=== PATIENT | female | born 1985 | race Caucasian/White ===

== ENCOUNTER 2016-04-10 10:06 | Emergency (ER) | payer OTHER ==
[~2016-04-10] VITALS: Ht 154.9 cm; Wt 54.5 kg
[~2016-04-10 10:06] MED LIST: ADVAIR IH; AMBIEN 10MG10 MG PO; AMERGE 2.5MG T2.5 MG PO; AMITRIPTYLINE H25 M1 PO; AMOXICILLIN 50500 MG PO; BACTRIM DS 8001 TAB PO; CELEXA; CELEXA40 MG PO; CEPHALEXIN250 M1 PO; CEPHALEXIN500 M1 PO; CLONAZEPAM PO; CYMBALTA 60MG60 MG PO; DEPAKOTE ER 25250 MG; DEPAKOTE ER 50500 MG PO; ELAVIL50 MG PO; ESTRACE 1MG1 MG/TAB PO; ESTRACE2 MG PO; ESTRADIOL TD; FELDENE10 MG; FLEXERIL 1010 MG/TAB PO; HYDROCODONE/APAP; IBUPROFEN600 MG PO; IBUPROFEN800 M1 PO; IMITREX 6M6 MG/0.5 M SQ; LORTAB 5/500 501 TAB PO; MACRODANTIN25 MG PO; MACRODANTIN50 MG PO; MAG-OX 400400 MG/TAB PO; MECLIZINE12.5 MG PO; MIDRIN; MULTIVITAMIN FO1 CAP PO; MUSCLE RELAXANT; NAPROSYN500 MG PO; NEURONTIN300 MG/CAP PO; NO HOME MEDICATIONS; NORCO 325 MG-51 TAB PO; NORCO 325 MG-7.1 TAB; OXYCONTIN15 MG PO; PEN-VEE K500 MG PO; PERCOCET 325 MG1 TA2 PO; PERCOCET 5/321 UDTAB PO; PHENERGAN 25 TA25 MG PO; PREDNISONE20 MG PO; PRINIVIL2.5 MG PO; PROVENTIL0.09 MG/A1 IH; TAMIFLU 75MG75 MG PO; TESSALON PERLE200 MG PO; TOPAMAX 100MG100 M1 PO; TRAZODONE150 MG PO; TREXIMET 500 MG1 TAB PO; TRIAMCINOLONE A15 GM TP; TYLENOL #3 301 UDTAB PO; ULTRAM 50MG TAB50 MG PO; VENTOLIN0.09 MG IH; VESICARE PO; VITAMIN B12100 MCG PO; ZIPSOR25 MG PO; ZITHROMAX 250M250 MG PO; ZOFRAN 4MG T4 MG/TAB PO; ZOFRAN ODT4 MG PO; ZOFRAN4 MG PO; tylenol pm
[2016-04-10 10:08] VITALS: BP 113/66; PULSE 79
[2016-04-10] MEDS ORDERED: NORCO 325 MG-51 TAB PO (10:51)
[2016-04-10 11:08] VITALS: TEMP 99
== END 2016-04-10 11:02 | disposition home or self-care (01) ==
LOC: COL.ER 10:06
DX: K08.89 Other specified disorders of teeth and supporting structures (principal); F17.210 Nicotine dependence, cigarettes, uncomplicated

== ENCOUNTER 2016-05-12 19:07 | Emergency (ER) | payer OTHER ==
[~2016-05-12] VITALS: Ht 154.9 cm; Wt 54.5 kg
[2016-05-12 19:10] VITALS: BP 129/75; TEMP 98.2
[2016-05-12 20:28] VITALS: PULSE 66
== END 2016-05-12 20:28 | disposition home or self-care (01) ==
LOC: COL.ER 19:07
DX: S60.211A Contusion of right wrist, initial encounter (principal); W23.0XXA Caught, crushed, jammed, or pinched between moving objects, initial encounter

== ENCOUNTER 2016-05-27 16:05 | Emergency (ER) | payer OTHER ==
[~2016-05-27] VITALS: Ht 162.6 cm; Wt 54.5 kg
[2016-05-27 16:08] VITALS: BP 113/74; TEMP 97.9
[2016-05-27] MEDS ORDERED: CEPHALEXIN250 M1 PO (16:31)
[2016-05-27 17:35] VITALS: PULSE 78
== END 2016-05-27 17:35 | disposition home or self-care (01) ==
LOC: COL.ER 16:05
DX: S60.221A Contusion of right hand, initial encounter (principal); S60.511A Abrasion of right hand, initial encounter; W22.01XA Walked into wall, initial encounter; Y93.83 Activity, rough housing and horseplay; Y92.009 Unspecified place in unspecified non-institutional (private) residence as the place of occurrence of the external cause

== ENCOUNTER 2016-05-29 11:53 | Emergency (ER) | payer OTHER ==
[~2016-05-29] VITALS: Ht 154.9 cm; Wt 54.5 kg
[2016-05-29 12:03] VITALS: BP 109/68; TEMP 98.4
[2016-05-29 13:57] VITALS: PULSE 67
== END 2016-05-29 13:57 | disposition home or self-care (01) ==
LOC: COL.ER 11:53
DX: S63.8X1D Sprain of other part of right wrist and hand, subsequent encounter (principal); X58.XXXD Exposure to other specified factors, subsequent encounter

== ENCOUNTER 2016-06-09 13:12 | Emergency (ER) | payer OTHER ==
[~2016-06-09] VITALS: Ht 154.9 cm; Wt 50.0 kg
[2016-06-09 13:19] VITALS: BP 109/63; PULSE 81; TEMP 98.2
[2016-06-09] MEDS ORDERED: FLEXERIL 1010 MG/TAB PO (14:26)
== END 2016-06-09 14:46 | disposition home or self-care (01) ==
LOC: COL.ER 13:12
DX: S46.911A Strain of unspecified muscle, fascia and tendon at shoulder and upper arm level, right arm, initial encounter (principal); X58.XXXA Exposure to other specified factors, initial encounter
CPT/HCPCS: J1885; J2360

== ENCOUNTER 2016-06-17 08:18 | Emergency (ER) | payer OTHER ==
[~2016-06-17] VITALS: Ht 162.6 cm; Wt 50.0 kg
[2016-06-17 08:24] VITALS: TEMP 98
[2016-06-17 09:12] LABS: HEMATOCRIT 41.1 % (37.0-47.0); HEMOGLOBIN 14.5 g/dl (12.5-16.0); MEAN CELL VOLUME 92 fl (80.0-100.0); MEAN CORPUSCULAR HEMOGLOBIN 32 pg (27.0-31.0); MEAN CORPUSCULAR HGB CONC 35 g/dl (33.0-37.0); MEAN PLATELET VOLUME 9.7 fl (7.4-10.4); PLATELET COUNT 219 K/mm3 (130-400); RED BLOOD COUNT 4.47 M/mm3 (4.10-5.30); REDCELL DISTRIBUTION WIDTH-CV 12.5 % (11.5-14.5)
[2016-06-17 09:16] LABS: PH 5 (5-8); SQUAMOUS EPITHELIAL 0-2 /hpf; URINE APPEARANCE Clear; URINE BACTERIA None Seen /hpf; URINE BILIRUBIN Negative (NEGATIVE); URINE BLOOD 1+ (NEGATIVE); URINE COLOR Yellow; URINE GLUCOSE Negative (NEGATIVE); URINE KETONE Negative (NEGATIVE); URINE UROBILINOGEN Negative (NEGATIVE); URINE WBC 0-2 /hpf
[2016-06-17 09:20] LABS: ADD PATHOLOGY DIFF REVIEW NO
[2016-06-17 09:30] LABS: ADJUSTED CALCIUM 9.1 mg/dL (8.4-10.2); ALBUMIN 4.6 gm/dL (3.5-5.0); BILIRUBIN,TOTAL 0.7 mg/dL (0.0-1.0); C-REACTIVE PROTEIN 0.7 mg/dL (0.0-0.9); CALCIUM 9.6 mg/dL (8.4-10.2); CREATININE, serum 0.69 mg/dL (0.52-1.25); TOTAL PROTEIN 7.5 gm/dL (6.4-8.2)
[2016-06-17 09:32] LABS: BAND 3 % (0-10); EOSINOPHIL 2 % (0-4); NEUTROPHILS 90 % (42.0-75.2); TOTAL CELLS COUNTED 100
[2016-06-17] MEDS ORDERED: ZOFRAN ODT4 MG PO (10:58)
[2016-06-17 11:16] VITALS: BP 104/69; PULSE 96
== END 2016-06-17 11:16 | disposition home or self-care (01) ==
LOC: COL.ER 08:18
PROVIDERS: Physician Assistant
DX: K52.9 Noninfective gastroenteritis and colitis, unspecified (principal); F17.210 Nicotine dependence, cigarettes, uncomplicated
CPT/HCPCS: J1170; J1885; J2405; J2550; J7030

== ENCOUNTER 2016-06-25 12:42 | Emergency (ER) | payer OTHER ==
[~2016-06-25] VITALS: Ht 154.9 cm; Wt 50.5 kg
[2016-06-25 12:55] VITALS: BP 117/71; TEMP 98.1
[2016-06-25 14:20] VITALS: PULSE 90
== END 2016-06-25 14:24 | disposition home or self-care (01) ==
LOC: COL.ER 12:42
DX: S93.402A Sprain of unspecified ligament of left ankle, initial encounter (principal); W17.89XA Other fall from one level to another, initial encounter; Y92.414 Local residential or business street as the place of occurrence of the external cause

== ENCOUNTER 2016-07-05 12:10 | Emergency (ER) | payer OTHER ==
[~2016-07-05] VITALS: Ht 154.9 cm; Wt 49.5 kg
[2016-07-05 12:16] VITALS: BP 103/67; TEMP 98.4
[2016-07-05] MEDS ORDERED: PERCOCET 325 MG1 TA2 PO (14:04)
[2016-07-05] MEDS ORDERED: ULTRAM 50MG TAB50 MG PO (14:04)
[2016-07-05 14:21] VITALS: PULSE 88
== END 2016-07-05 14:22 | disposition home or self-care (01) ==
LOC: COL.ER 12:10
DX: S46.912A Strain of unspecified muscle, fascia and tendon at shoulder and upper arm level, left arm, initial encounter (principal); X50.0XXA Overexertion from strenuous movement or load, initial encounter; Y92.89 Other specified places as the place of occurrence of the external cause
CPT/HCPCS: J1885

== ENCOUNTER 2016-08-15 15:49 | Emergency (ER) | payer OTHER ==
[~2016-08-15] VITALS: Ht 154.9 cm; Wt 50.0 kg
[2016-08-15 15:52] VITALS: BP 115/60; PULSE 75; TEMP 98.9
[2016-08-15] MEDS ORDERED: PEN-VEE K500 MG PO (16:15)
== END 2016-08-15 16:30 | disposition home or self-care (01) ==
LOC: COL.ER 15:49
DX: K08.89 Other specified disorders of teeth and supporting structures (principal); Z98.890 Other specified postprocedural states; F17.210 Nicotine dependence, cigarettes, uncomplicated; K08.409 Partial loss of teeth, unspecified cause, unspecified class

== ENCOUNTER 2016-09-01 17:16 | Emergency (ER) | payer OTHER ==
[~2016-09-01] VITALS: Ht 162.6 cm; Wt 50.0 kg
[2016-09-01 17:20] VITALS: BP 126/57; TEMP 98.2
[2016-09-01 19:13] VITALS: PULSE 74
== END 2016-09-01 19:14 | disposition home or self-care (01) ==
LOC: COL.ER 17:16
DX: S43.402A Unspecified sprain of left shoulder joint, initial encounter (principal); S63.502A Unspecified sprain of left wrist, initial encounter; W11.XXXA Fall on and from ladder, initial encounter; Y92.009 Unspecified place in unspecified non-institutional (private) residence as the place of occurrence of the external cause; J45.909 Unspecified asthma, uncomplicated; F32.9 Major depressive disorder, single episode, unspecified; F17.210 Nicotine dependence, cigarettes, uncomplicated

== ENCOUNTER 2016-10-06 18:04 | Emergency (ER) | payer OTHER ==
[~2016-10-06] VITALS: Ht 154.9 cm; Wt 51.8 kg
[2016-10-06 18:05] VITALS: BP 117/57; TEMP 98.6
[2016-10-06 20:16] VITALS: PULSE 79
== END 2016-10-06 20:16 | disposition home or self-care (01) ==
LOC: COL.ER 18:04
DX: M67.471 Ganglion, right ankle and foot (principal); F32.9 Major depressive disorder, single episode, unspecified; J45.909 Unspecified asthma, uncomplicated; F17.210 Nicotine dependence, cigarettes, uncomplicated; Z98.51 Tubal ligation status; Z87.59 Personal history of other complications of pregnancy, childbirth and the puerperium; Z90.49 Acquired absence of other specified parts of digestive tract; Z90.710 Acquired absence of both cervix and uterus

== ENCOUNTER 2016-10-14 12:45 | Emergency (ER) | payer OTHER ==
[~2016-10-14] VITALS: Ht 154.9 cm; Wt 52.7 kg
[2016-10-14 12:55] VITALS: BP 120/67; PULSE 76; TEMP 98.7
== END 2016-10-14 14:58 | disposition home or self-care (01) ==
LOC: COL.ER 12:45
DX: S61.412A Laceration without foreign body of left hand, initial encounter (principal); W26.8XXA Contact with other sharp object(s), not elsewhere classified, initial encounter; Y92.009 Unspecified place in unspecified non-institutional (private) residence as the place of occurrence of the external cause

== ENCOUNTER 2016-10-25 21:13 | Emergency (ER) | payer OTHER ==
[~2016-10-25] VITALS: Ht 154.9 cm; Wt 52.3 kg
[2016-10-25 21:14] VITALS: BP 118/59; TEMP 97.7
[2016-10-25 22:50] VITALS: PULSE 74
== END 2016-10-25 22:51 | disposition home or self-care (01) ==
LOC: COL.ER 21:13
DX: S20.211A Contusion of right front wall of thorax, initial encounter (principal); J45.909 Unspecified asthma, uncomplicated; F32.9 Major depressive disorder, single episode, unspecified; F17.210 Nicotine dependence, cigarettes, uncomplicated; W51.XXXA Accidental striking against or bumped into by another person, initial encounter; Y92.831 Amusement park as the place of occurrence of the external cause
CPT/HCPCS: J1885

== ENCOUNTER 2016-10-26 13:26 | Emergency (ER) | payer OTHER ==
[~2016-10-26] VITALS: Ht 154.9 cm; Wt 52.3 kg
[2016-10-26 13:32] VITALS: BP 101/59; PULSE 76; TEMP 98
== END 2016-10-26 15:22 | disposition other institution (70) ==
LOC: COL.ER 13:26
DX: S46.911A Strain of unspecified muscle, fascia and tendon at shoulder and upper arm level, right arm, initial encounter (principal); W22.8XXA Striking against or struck by other objects, initial encounter; Y92.89 Other specified places as the place of occurrence of the external cause
CPT/HCPCS: J1885

== ENCOUNTER 2016-12-22 15:43 | Emergency (ER) | payer SELFPAY ==
[~2016-12-22] VITALS: Ht 154.9 cm; Wt 56.8 kg
[2016-12-22 15:45] VITALS: BP 121/60; TEMP 99.2
[2016-12-22 17:03] VITALS: PULSE 80
== END 2016-12-22 17:04 | disposition home or self-care (01) ==
LOC: COL.ER 15:43
DX: S80.02XA Contusion of left knee, initial encounter (principal); J45.909 Unspecified asthma, uncomplicated; F32.9 Major depressive disorder, single episode, unspecified; F17.210 Nicotine dependence, cigarettes, uncomplicated; V00.132A Skateboarder colliding with stationary object, initial encounter; Y92.331 Roller skating rink as the place of occurrence of the external cause

== ENCOUNTER 2017-01-18 13:25 | Emergency (ER) | payer SELFPAY ==
[~2017-01-18] VITALS: Ht 154.9 cm; Wt 52.7 kg
[2017-01-18 13:28] VITALS: BP 113/63; TEMP 97.8
[2017-01-18] MEDS ORDERED: ROBAXIN 75750 MG/TAB PO (14:52)
[2017-01-18 15:11] VITALS: PULSE 80
== END 2017-01-18 15:15 | disposition home or self-care (01) ==
LOC: COL.ER 13:25
DX: S39.012A Strain of muscle, fascia and tendon of lower back, initial encounter (principal); Z90.710 Acquired absence of both cervix and uterus; X50.0XXA Overexertion from strenuous movement or load, initial encounter
CPT/HCPCS: J1885; J2360

== ENCOUNTER 2017-03-02 14:29 | Emergency (ER) | payer SELFPAY ==
[~2017-03-02] VITALS: Ht 154.9 cm; Wt 54.5 kg
[~2017-03-02 14:29] MED LIST changes: +ROBAXIN 75750 MG/TAB PO
[2017-03-02 14:37] VITALS: TEMP 97.7
[2017-03-02 16:10] VITALS: BP 116/70; PULSE 76
== END 2017-03-02 16:11 | disposition home or self-care (01) ==
LOC: COL.ER 14:29
DX: S80.01XA Contusion of right knee, initial encounter (principal); F32.9 Major depressive disorder, single episode, unspecified; Z90.49 Acquired absence of other specified parts of digestive tract; Z90.710 Acquired absence of both cervix and uterus; W17.89XA Other fall from one level to another, initial encounter; Y93.39 Activity, other involving climbing, rappelling and jumping off
CPT/HCPCS: L1830

== ENCOUNTER 2017-04-17 17:24 | Emergency (ER) | payer SELFPAY ==
[~2017-04-17] VITALS: Ht 154.9 cm; Wt 54.5 kg
[2017-04-17 17:27] VITALS: BP 118/60; TEMP 97.5
[2017-04-17] MEDS ORDERED: FLEXERIL 1010 MG/TAB PO (18:48)
[2017-04-17 18:59] VITALS: PULSE 82
== END 2017-04-17 19:00 | disposition home or self-care (01) ==
LOC: COL.ER 17:24
DX: M62.830 Muscle spasm of back (principal); M54.2 Cervicalgia; J45.909 Unspecified asthma, uncomplicated; F17.210 Nicotine dependence, cigarettes, uncomplicated
CPT/HCPCS: J1885

== ENCOUNTER 2017-04-24 14:53 | Emergency (ER) | payer SELFPAY ==
[~2017-04-24] VITALS: Ht 154.9 cm; Wt 54.5 kg
[2017-04-24 15:24] VITALS: BP 117/71; TEMP 98.4
[2017-04-24] MEDS ORDERED: PEN-VEE K500 MG PO (16:42)
[2017-04-24] MEDS ORDERED: NORCO 325 MG-51 TAB PO (16:42)
[2017-04-24 16:51] VITALS: PULSE 77
== END 2017-04-24 16:51 | disposition home or self-care (01) ==
LOC: COL.ER 14:53
DX: K08.89 Other specified disorders of teeth and supporting structures (principal); F17.210 Nicotine dependence, cigarettes, uncomplicated

== ENCOUNTER 2017-05-11 08:34 | Emergency (ER) | payer SELFPAY ==
[~2017-05-11] VITALS: Ht 154.9 cm; Wt 56.8 kg
[2017-05-11 08:37] VITALS: BP 116/63; TEMP 98.9
[2017-05-11] MEDS ORDERED: ZOFRAN ODT4 MG PO (09:49)
[2017-05-11 10:11] VITALS: PULSE 78
== END 2017-05-11 10:12 | disposition home or self-care (01) ==
LOC: COL.ER 08:34
DX: J10.1 Influenza due to other identified influenza virus with other respiratory manifestations (principal); J45.909 Unspecified asthma, uncomplicated; F17.210 Nicotine dependence, cigarettes, uncomplicated; Z90.49 Acquired absence of other specified parts of digestive tract; Z90.710 Acquired absence of both cervix and uterus; Z98.890 Other specified postprocedural states

== ENCOUNTER 2017-06-05 13:42 | Emergency (ER) | payer SELFPAY ==
[~2017-06-05] VITALS: Ht 154.9 cm; Wt 56.8 kg
[2017-06-05 13:47] VITALS: BP 126/61; PULSE 75; TEMP 99.1
[2017-06-05 14:31] LABS: BASO % 0.4 % (0.0-2.0); EOS # 0.1 (0.0-0.7); EOS % 1.5 % (0-4.0); GRAN % 53.1 % (42.2-75.2); HEMATOCRIT 38.3 % (37.0-47.0); HEMOGLOBIN 13.3 g/dl (12.5-16.0); LYMPH # 3.7 (1.2-3.4); MEAN CELL VOLUME 93 fl (80.0-100.0); MEAN CORPUSCULAR HEMOGLOBIN 32 pg (27.0-31.0); MEAN CORPUSCULAR HGB CONC 35 g/dl (33.0-37.0); MEAN PLATELET VOLUME 9.6 fl (7.4-10.4); MONO # 0.5 (0.1-0.6); MONO % 4.8 % (1.7-9.3); PLATELET COUNT 222 K/mm3 (130-400); RED BLOOD COUNT 4.12 M/mm3 (4.10-5.30); REDCELL DISTRIBUTION WIDTH-CV 12.5 % (11.5-14.5)
[2017-06-05 14:46] LABS: ALBUMIN 4.5 gm/dL (3.5-5.0); BILIRUBIN,TOTAL 0.2 mg/dL (0.0-1.0); CALCIUM 8.9 mg/dL (8.4-10.2); CREATININE, serum 0.82 mg/dL (0.52-1.25); POTASSIUM 3.6 mmol/L (3.4-5.0)
[2017-06-05 14:52] LABS: ERYTHROCYTE SEDIMENTATION RATE 2 mm/hr (0-20)
[2017-06-05] MEDS ORDERED: MEDROL 4MG DOSPA4 MG PO (15:03)
== END 2017-06-05 15:14 | disposition home or self-care (01) ==
LOC: COL.ER 13:42
PROVIDERS: Family Medicine
DX: M54.16 Radiculopathy, lumbar region (principal); F17.210 Nicotine dependence, cigarettes, uncomplicated; Z90.49 Acquired absence of other specified parts of digestive tract; Z90.710 Acquired absence of both cervix and uterus
CPT/HCPCS: J1885

== ENCOUNTER 2017-06-29 12:18 | Emergency (ER) | payer SELFPAY ==
[~2017-06-29] VITALS: Ht 154.9 cm; Wt 54.5 kg
[~2017-06-29 12:18] MED LIST changes: +MEDROL 4MG DOSPA4 MG PO
[2017-06-29] MEDS ORDERED: FLEXERIL 1010 MG/TAB PO (12:50)
[2017-06-29 12:59] LABS: COLLECTION METHOD CLEAN CATCH
[2017-06-29 13:07] VITALS: BP 112/72; PULSE 101; TEMP 98.3
[2017-06-29 13:11] LABS: MUCOUS Present /lpf; PH 5 (5-8); URINE APPEARANCE Cloudy; URINE BACTERIA None Seen /hpf; URINE BILIRUBIN Negative (NEGATIVE); URINE BLOOD 1+ (NEGATIVE); URINE COLOR Yellow; URINE GLUCOSE Negative (NEGATIVE); URINE KETONE Trace (NEGATIVE); URINE LEUKOCYTE ESTERASE 2+ (NEGATIVE); URINE NITRATE Negative (NEGATIVE); URINE PROTEIN(semi-quant) Negative (NEGATIVE)
[2017-06-29] MEDS ORDERED: MACROBID 1100 MG/CAP PO (13:27)
== END 2017-06-29 13:33 | disposition home or self-care (01) ==
LOC: COL.ER 12:18
PROVIDERS: Physician Assistant
DX: N39.0 Urinary tract infection, site not specified (principal); F17.210 Nicotine dependence, cigarettes, uncomplicated
CPT/HCPCS: J1100; J2360

== ENCOUNTER 2017-07-02 17:17 | Emergency (ER) | payer SELFPAY ==
[~2017-07-02] VITALS: Ht 154.9 cm; Wt 54.5 kg
[~2017-07-02 17:17] MED LIST changes: +MACROBID 1100 MG/CAP PO
[2017-07-02] MEDS ORDERED: AMOXICILLIN 50500 MG PO (18:05)
[2017-07-02 18:23] VITALS: BP 114/59; TEMP 97.9
[2017-07-02 18:32] VITALS: PULSE 89
== END 2017-07-02 18:30 | disposition home or self-care (01) ==
LOC: COL.ER 17:17
DX: K02.9 Dental caries, unspecified (principal); Z79.52 Long term (current) use of systemic steroids

== ENCOUNTER 2017-07-12 14:29 | Emergency (ER) | payer SELFPAY ==
[~2017-07-12] VITALS: Ht 154.9 cm; Wt 59.1 kg
[2017-07-12 14:56] VITALS: BP 117/71; TEMP 99.1
[2017-07-12] MEDS ORDERED: ADVIL200 MG PO (15:16)
[2017-07-12] MEDS ORDERED: TYLENOL 500MG500 MG PO (15:16)
[2017-07-12] MEDS ORDERED: FLEXERIL 1010 MG/TAB PO (16:47)
[2017-07-12 17:19] VITALS: PULSE 90
== END 2017-07-12 17:20 | disposition home or self-care (01) ==
LOC: COL.ER 14:29
DX: M25.551 Pain in right hip (principal); J45.909 Unspecified asthma, uncomplicated; F17.210 Nicotine dependence, cigarettes, uncomplicated; Z98.890 Other specified postprocedural states
CPT/HCPCS: J1885

== ENCOUNTER 2017-07-26 16:37 | Emergency (ER) | payer SELFPAY ==
[~2017-07-26] VITALS: Ht 154.9 cm; Wt 55.5 kg
[~2017-07-26 16:37] MED LIST changes: +ADVIL200 MG PO; +TYLENOL 500MG500 MG PO
[2017-07-26 16:43] VITALS: BP 129/70; PULSE 90; TEMP 99
== END 2017-07-26 18:29 | disposition home or self-care (01) ==
LOC: COL.ER 16:37
DX: S83.92XA Sprain of unspecified site of left knee, initial encounter (principal); S93.402A Sprain of unspecified ligament of left ankle, initial encounter; S90.31XA Contusion of right foot, initial encounter; F32.9 Major depressive disorder, single episode, unspecified; J45.909 Unspecified asthma, uncomplicated; F17.210 Nicotine dependence, cigarettes, uncomplicated; X50.1XXA Overexertion from prolonged static or awkward postures, initial encounter; Y92.830 Public park as the place of occurrence of the external cause

== ENCOUNTER 2017-08-09 10:49 | Emergency (ER) | payer SELFPAY ==
[~2017-08-09] VITALS: Ht 154.9 cm; Wt 54.5 kg
[2017-08-09 10:52] VITALS: BP 125/80; TEMP 97.6
[2017-08-09 11:31] LABS: COLLECTION METHOD CLEAN CATCH
[2017-08-09 11:44] LABS: PH 5 (5-8); SQUAMOUS EPITHELIAL 0-2 /hpf; URINE APPEARANCE Clear; URINE BACTERIA Rare /hpf; URINE BILIRUBIN Negative (NEGATIVE); URINE BLOOD 1+ (NEGATIVE); URINE COLOR Yellow; URINE GLUCOSE Negative (NEGATIVE); URINE KETONE 1+ (NEGATIVE); URINE LEUKOCYTE ESTERASE Negative (NEGATIVE); URINE NITRATE Negative (NEGATIVE); URINE PROTEIN(semi-quant) Negative (NEGATIVE); URINE RBC 0-2 /hpf; URINE UROBILINOGEN Negative (NEGATIVE)
[2017-08-09 11:44] LABS: BASO % 0.3 % (0.0-2.0); EOS # 0.1 (0.0-0.7); GRAN # 3.9 (1.4-6.5); GRAN % 57.6 % (42.2-75.2); HEMOGLOBIN 13.1 g/dl (12.5-16.0); LYMPH # 2.4 (1.2-3.4); LYMPH % 35.5 % (20.0-51.0); MEAN CELL VOLUME 90 fl (80.0-100.0); MEAN CORPUSCULAR HEMOGLOBIN 32 pg (27.0-31.0); MEAN CORPUSCULAR HGB CONC 36 g/dl (33.0-37.0); MEAN PLATELET VOLUME 9.7 fl (7.4-10.4); MONO # 0.4 (0.1-0.6); MONO % 5.3 % (1.7-9.3); PLATELET COUNT 245 K/mm3 (130-400); REDCELL DISTRIBUTION WIDTH-CV 12.3 % (11.5-14.5)
[2017-08-09 11:47] LABS: HEMATOCRIT 36.9 % (37.0-47.0)
[2017-08-09 11:57] LABS: ALBUMIN 4.3 gm/dL (3.5-5.0); BILIRUBIN,TOTAL 0.5 mg/dL (0.0-1.0); C-REACTIVE PROTEIN 0.8 mg/dL (0.0-0.9); CALCIUM 9.4 mg/dL (8.4-10.2); CREATININE, serum 0.68 mg/dL (0.52-1.25); POTASSIUM 3.6 mmol/L (3.4-5.0); TOTAL PROTEIN 7.6 gm/dL (6.4-8.2)
[2017-08-09 12:57] VITALS: PULSE 73
== END 2017-08-09 12:59 | disposition home or self-care (01) ==
LOC: COL.ER 10:49
PROVIDERS: Nurse Practitioner
DX: S86.911A Strain of unspecified muscle(s) and tendon(s) at lower leg level, right leg, initial encounter (principal); R10.30 Lower abdominal pain, unspecified; F17.210 Nicotine dependence, cigarettes, uncomplicated; X50.0XXA Overexertion from strenuous movement or load, initial encounter; W17.89XA Other fall from one level to another, initial encounter; Y93.39 Activity, other involving climbing, rappelling and jumping off

== ENCOUNTER 2017-08-21 18:11 | Emergency (ER) | payer SELFPAY ==
[~2017-08-21] VITALS: Ht 154.9 cm; Wt 54.5 kg
[2017-08-21 18:14] VITALS: BP 114/59; TEMP 98.1
[2017-08-21 18:55] VITALS: PULSE 93
== END 2017-08-21 18:55 | disposition home or self-care (01) ==
LOC: COL.ER 18:11
DX: S93.402A Sprain of unspecified ligament of left ankle, initial encounter (principal); X50.0XXA Overexertion from strenuous movement or load, initial encounter; Y93.39 Activity, other involving climbing, rappelling and jumping off

== ENCOUNTER 2017-10-22 12:36 | Emergency (ER) | payer SELFPAY ==
[~2017-10-22] VITALS: Ht 154.9 cm; Wt 53.2 kg
[2017-10-22 12:43] VITALS: BP 109/57; TEMP 99.1
[2017-10-22] MEDS ORDERED: BENTYL 10MG10 MG/CAP PO (12:45)
[2017-10-22] MEDS ORDERED: NORCO 325 MG-51 TAB PO (13:01)
[2017-10-22 13:14] VITALS: PULSE 68
== END 2017-10-22 13:18 | disposition home or self-care (01) ==
LOC: COL.ER 12:36
DX: K08.89 Other specified disorders of teeth and supporting structures (principal); F17.210 Nicotine dependence, cigarettes, uncomplicated

== ENCOUNTER → 2017-11-02 | Day surgery (SDC) | payer SELFPAY ==
[~2017-11-02] VITALS: Ht 154.9 cm; Wt 52.0 kg
[~2017-11-02] MED LIST changes: +BENTYL 10MG10 MG/CAP PO
[2017-11-02 08:13] VITALS: BP 128/91; PULSE 65; TEMP 98.4
[2017-11-02 10:35] VITALS: BP 148/80; PULSE 75; TEMP 98.3
[2017-11-02 10:45] VITALS: BP 140/89; PULSE 75
[2017-11-02 11:00] VITALS: BP 122/85; PULSE 67
[2017-11-02 11:15] VITALS: BP 110/67; PULSE 72
[2017-11-02 11:30] VITALS: BP 112/74; PULSE 55
== END ==
LOC: SDCO 07:54
DX: K29.30 Chronic superficial gastritis without bleeding (principal); A04.71 Enterocolitis due to Clostridium difficile, recurrent; K64.0 First degree hemorrhoids; R10.84 Generalized abdominal pain; J45.909 Unspecified asthma, uncomplicated
CPT/HCPCS: J2250; J2405; J3010; J7030

== ENCOUNTER 2017-11-24 10:23 | Emergency (ER) | payer SELFPAY ==
[~2017-11-24] VITALS: Ht 154.9 cm; Wt 52.3 kg
[2017-11-24 10:31] VITALS: BP 115/64; PULSE 73; TEMP 98.1
[2017-11-24] MEDS ORDERED: LIDODERM 5% PATC1 EA TP (11:23)
[2017-11-24] MEDS ORDERED: FLEXERIL 1010 MG/TAB PO (11:23)
== END 2017-11-24 11:47 | disposition home or self-care (01) ==
LOC: COL.ER 10:23
DX: M54.2 Cervicalgia (principal); M54.6 Pain in thoracic spine; F32.9 Major depressive disorder, single episode, unspecified; J45.909 Unspecified asthma, uncomplicated; G89.29 Other chronic pain; F17.210 Nicotine dependence, cigarettes, uncomplicated

== ENCOUNTER 2017-12-15 11:50 | Emergency (ER) | payer SELFPAY ==
[~2017-12-15] VITALS: Ht 160 cm; Wt 59.1 kg
[~2017-12-15 11:50] MED LIST changes: +LIDODERM 5% PATC1 EA TP
[2017-12-15 11:59] VITALS: BP 127/76; TEMP 98.8
[2017-12-15] MEDS ORDERED: AMOXICILLIN 50500 MG PO (12:07)
[2017-12-15 12:26] VITALS: PULSE 85
== END 2017-12-15 12:26 | disposition home or self-care (01) ==
LOC: COL.ER 11:50
DX: K02.9 Dental caries, unspecified (principal)

== ENCOUNTER 2018-01-03 09:01 | Emergency (ER) | payer SELFPAY ==
[~2018-01-03] VITALS: Ht 154.9 cm; Wt 59.1 kg
[2018-01-03 09:09] VITALS: BP 112/72; TEMP 98.5
[2018-01-03] MEDS ORDERED: ZITHROMAX Z PA250 MG PO (10:46)
[2018-01-03] MEDS ORDERED: CHERATUSSIN AC240 ML PO (10:48)
[2018-01-03 10:55] VITALS: PULSE 82
== END 2018-01-03 10:55 | disposition home or self-care (01) ==
LOC: COL.ER 09:01
DX: J20.9 Acute bronchitis, unspecified (principal); J45.909 Unspecified asthma, uncomplicated; F17.210 Nicotine dependence, cigarettes, uncomplicated; Z91.041 Radiographic dye allergy status

== ENCOUNTER 2018-01-15 13:57 | Emergency (ER) | payer SELFPAY ==
[~2018-01-15] VITALS: Ht 154.9 cm; Wt 59.1 kg
[~2018-01-15 13:57] MED LIST changes: +CHERATUSSIN AC240 ML PO; +ZITHROMAX Z PA250 MG PO
[2018-01-15 14:01] VITALS: BP 132/65; TEMP 98.4
[2018-01-15] MEDS ORDERED: ZITHROMAX Z PA250 MG PO (14:39)
[2018-01-15] MEDS ORDERED: TESSALON PERLE200 MG PO (14:39)
[2018-01-15] MEDS ORDERED: PROAIR HFA0.09 MG/AC IH (14:39)
[2018-01-15 14:58] VITALS: PULSE 75
== END 2018-01-15 14:58 | disposition home or self-care (01) ==
LOC: COL.ER 13:57
DX: J45.909 Unspecified asthma, uncomplicated (principal); F17.210 Nicotine dependence, cigarettes, uncomplicated; Z90.710 Acquired absence of both cervix and uterus; Z98.890 Other specified postprocedural states

== ENCOUNTER 2018-03-02 13:44 | Emergency (ER) | payer SELFPAY ==
[~2018-03-02] VITALS: Ht 154.9 cm; Wt 59.1 kg
[~2018-03-02 13:44] MED LIST changes: +PROAIR HFA0.09 MG/AC IH
[2018-03-02 13:53] VITALS: TEMP 99
[2018-03-02] MEDS ORDERED: AMOXICILLIN 50500 MG PO (14:58)
[2018-03-02 15:07] VITALS: BP 129/58; PULSE 86
== END 2018-03-02 15:08 | disposition home or self-care (01) ==
LOC: COL.ER 13:44
DX: K08.89 Other specified disorders of teeth and supporting structures (principal); F32.9 Major depressive disorder, single episode, unspecified; F17.210 Nicotine dependence, cigarettes, uncomplicated; G89.29 Other chronic pain

== ENCOUNTER 2018-04-03 18:30 | Emergency (ER) | payer SELFPAY ==
[~2018-04-03] VITALS: Ht 154.9 cm; Wt 59.1 kg
[2018-04-03 18:32] VITALS: TEMP 97.9
[2018-04-03 20:22] LABS: BASO % 0.5 % (0.0-2.0); EOS # 0.2 (0.0-0.7); GRAN # 4.3 (1.4-6.5); GRAN % 48.9 % (42.2-75.2); HEMATOCRIT 36.5 % (37.0-47.0); HEMOGLOBIN 13.1 g/dl (12.5-16.0); LYMPH # 3.7 (1.2-3.4); LYMPH % 42.3 % (20.0-51.0); MEAN CELL VOLUME 92 fl (80.0-100.0); MEAN CORPUSCULAR HEMOGLOBIN 33 pg (27.0-31.0); MEAN CORPUSCULAR HGB CONC 36 g/dl (33.0-37.0); MEAN PLATELET VOLUME 9.6 fl (7.4-10.4); MONO # 0.5 (0.1-0.6); MONO % 6.1 % (1.7-9.3); PLATELET COUNT 212 K/mm3 (130-400); RED BLOOD COUNT 3.96 M/mm3 (4.10-5.30); REDCELL DISTRIBUTION WIDTH-CV 11.7 % (11.5-14.5)
[2018-04-03 20:31] LABS: ALBUMIN 4.5 gm/dL (3.5-5.0); BILIRUBIN,TOTAL 0.4 mg/dL (0.0-1.0); CALCIUM 9.3 mg/dL (8.4-10.2); CREATININE, serum 0.66 mg/dL (0.52-1.25); POTASSIUM 3.4 mmol/L (3.4-5.0); TOTAL PROTEIN 7.1 gm/dL (6.4-8.2)
[2018-04-03 21:44] VITALS: BP 114/77; PULSE 86
== END 2018-04-03 21:57 | disposition short-term general hospital (02) ==
LOC: COL.ER 18:30
PROVIDERS: Physician Assistant
DX: S72.402A Unspecified fracture of lower end of left femur, initial encounter for closed fracture (principal); J45.909 Unspecified asthma, uncomplicated; Y93.02 Activity, running; Z90.49 Acquired absence of other specified parts of digestive tract; Z90.710 Acquired absence of both cervix and uterus; X50.0XXA Overexertion from strenuous movement or load, initial encounter; Y92.830 Public park as the place of occurrence of the external cause
CPT/HCPCS: J1170; J1885; J3010

== ENCOUNTER 2018-04-07 08:54 | Emergency (ER) | payer SELFPAY ==
[~2018-04-07] VITALS: Ht 154.9 cm; Wt 59.1 kg
[2018-04-07] MEDS ORDERED: ROXICODONE 55 MG/TAB PO (09:15)
[2018-04-07 09:54] LABS: BASO % 0.2 % (0.0-2.0); EOS # 0.1 (0.0-0.7); EOS % 0.4 % (0-4.0); GRAN # 8.6 (1.4-6.5); GRAN % 68.2 % (42.2-75.2); HEMOGLOBIN 8.3 g/dl (12.5-16.0); LYMPH # 2.5 (1.2-3.4); LYMPH % 19.9 % (20.0-51.0); MEAN CELL VOLUME 92 fl (80.0-100.0); MEAN CORPUSCULAR HEMOGLOBIN 33 pg (27.0-31.0); MEAN CORPUSCULAR HGB CONC 36 g/dl (33.0-37.0); MEAN PLATELET VOLUME 9.5 fl (7.4-10.4); MONO # 1.4 (0.1-0.6); MONO % 10.9 % (1.7-9.3); PLATELET COUNT 174 K/mm3 (130-400); REDCELL DISTRIBUTION WIDTH-CV 11.8 % (11.5-14.5)
[2018-04-07 10:03] LABS: ALBUMIN 3.7 gm/dL (3.5-5.0); BILIRUBIN,TOTAL 0.7 mg/dL (0.0-1.0); CALCIUM 8.8 mg/dL (8.4-10.2); CREATININE, serum 0.63 mg/dL (0.52-1.25); POTASSIUM 3.7 mmol/L (3.4-5.0); TOTAL PROTEIN 6.6 gm/dL (6.4-8.2)
[2018-04-07 10:29] LABS: COLLECTION METHOD CLEAN CATCH
[2018-04-07 10:36] LABS: PH 7 (5-8); SQUAMOUS EPITHELIAL 0-2 /hpf; URINE APPEARANCE Clear; URINE BACTERIA None Seen /hpf; URINE BILIRUBIN Negative (NEGATIVE); URINE BLOOD 1+ (NEGATIVE); URINE COLOR Straw; URINE GLUCOSE Negative (NEGATIVE); URINE KETONE Negative (NEGATIVE); URINE LEUKOCYTE ESTERASE Negative (NEGATIVE); URINE NITRATE Negative (NEGATIVE); URINE PROTEIN(semi-quant) Negative (NEGATIVE); URINE RBC None Seen /hpf; URINE UROBILINOGEN Negative (NEGATIVE); URINE WBC None Seen /hpf
[2018-04-07 11:19] VITALS: BP 109/57; PULSE 96; TEMP 98.5
== END 2018-04-07 11:48 | disposition home or self-care (01) ==
LOC: COL.ER 08:54
PROVIDERS: Emergency Medicine
DX: M25.562 Pain in left knee (principal); D64.9 Anemia, unspecified; J45.909 Unspecified asthma, uncomplicated; F17.210 Nicotine dependence, cigarettes, uncomplicated; Z90.49 Acquired absence of other specified parts of digestive tract; Z90.710 Acquired absence of both cervix and uterus
CPT/HCPCS: A9284; J2270; J7040

== ENCOUNTER 2018-04-09 19:57 | Emergency (ER) | payer SELFPAY ==
[~2018-04-09] VITALS: Ht 154.9 cm; Wt 59.1 kg
[~2018-04-09 19:57] MED LIST changes: +ROXICODONE 55 MG/TAB PO
[2018-04-09 20:12] VITALS: TEMP 98.9
[2018-04-09] MEDS ORDERED: PERCOCET 325 MG1 TA2 PO (20:35)
[2018-04-09] MEDS ORDERED: TYLENOL 325MG325 MG PO (20:35)
[2018-04-09 20:43] LABS: BASO % 0.2 % (0.0-2.0); EOS # 0.2 (0.0-0.7); EOS % 1.4 % (0-4.0); GRAN # 7.5 (1.4-6.5); GRAN % 67.6 % (42.2-75.2); LYMPH # 1.9 (1.2-3.4); LYMPH % 17.2 % (20.0-51.0); MEAN CELL VOLUME 93 fl (80.0-100.0); MEAN CORPUSCULAR HGB CONC 36 g/dl (33.0-37.0); MEAN PLATELET VOLUME 9.3 fl (7.4-10.4); MONO # 1.5 (0.1-0.6); MONO % 13.3 % (1.7-9.3); RED BLOOD COUNT 2.33 M/mm3 (4.10-5.30); REDCELL DISTRIBUTION WIDTH-CV 11.8 % (11.5-14.5)
[2018-04-09 21:00] LABS: HEMATOCRIT 21.7 % (37.0-47.0); HEMOGLOBIN 7.7 g/dl (12.5-16.0); MEAN CORPUSCULAR HEMOGLOBIN 33 pg (27.0-31.0); PLATELET COUNT 283 K/mm3 (130-400)
[2018-04-09 22:20] VITALS: BP 123/60; PULSE 91
== END 2018-04-09 22:33 | disposition home or self-care (01) ==
LOC: COL.ER 19:57
PROVIDERS: Family Medicine
DX: L76.32 Postprocedural hematoma of skin and subcutaneous tissue following other procedure (principal); G89.18 Other acute postprocedural pain; M79.605 Pain in left leg; D64.9 Anemia, unspecified; F17.210 Nicotine dependence, cigarettes, uncomplicated
CPT/HCPCS: J1170; J1650; J2405; J7030

== ENCOUNTER → 2018-04-10 | Outpatient (CLI) | payer SELFPAY ==
[~2018-04-10] MED LIST changes: +TYLENOL 325MG325 MG PO
== END ==
LOC: COL.RAD 04-09 22:13
DX: M79.605 Pain in left leg (principal)

== ENCOUNTER 2018-05-11 14:34 | Emergency (ER) | payer SELFPAY ==
[~2018-05-11] VITALS: Ht 154.9 cm; Wt 59.1 kg
[2018-05-11 14:37] VITALS: TEMP 98.3
[2018-05-11] MEDS ORDERED: ADVIL200 MG PO (14:59)
[2018-05-11] MEDS ORDERED: NORCO 325 MG-51 TAB PO (15:59)
[2018-05-11] MEDS ORDERED: FLEXERIL 1010 MG/TAB PO (15:59)
[2018-05-11 16:49] VITALS: BP 106/75; PULSE 79
== END 2018-05-11 16:50 | disposition home or self-care (01) ==
LOC: COL.ER 14:34
DX: G89.18 Other acute postprocedural pain (principal); M79.605 Pain in left leg
CPT/HCPCS: J1885

== ENCOUNTER 2018-05-31 15:38 | Emergency (ER) | payer SELFPAY ==
[~2018-05-31] VITALS: Ht 154.9 cm; Wt 48.6 kg
[2018-05-31 15:50] VITALS: TEMP 98.5
[2018-05-31] MEDS ORDERED: TYLENOL 325MG325 MG PO (16:20)
[2018-05-31] MEDS ORDERED: ADVIL200 MG PO (16:21)
[2018-05-31 18:08] VITALS: BP 97/60; PULSE 95
== END 2018-05-31 18:08 | disposition home or self-care (01) ==
LOC: COL.ER 15:38
DX: S86.912A Strain of unspecified muscle(s) and tendon(s) at lower leg level, left leg, initial encounter (principal); F17.210 Nicotine dependence, cigarettes, uncomplicated; F32.9 Major depressive disorder, single episode, unspecified; W00.0XXA Fall on same level due to ice and snow, initial encounter

== ENCOUNTER 2018-06-30 11:15 | Outpatient (RCR) | payer SELFPAY | END 2018-07-12 15:52 | disposition home or self-care (01) | LOC: WSPT 11:15 | DX: S72.92XD Unspecified fracture of left femur, subsequent encounter for closed fracture with routine healing (principal); X50.0XXD Overexertion from strenuous movement or load, subsequent encounter ==

== ENCOUNTER 2018-07-05 02:29 | Emergency (ER) | payer SELFPAY ==
[~2018-07-05] VITALS: Ht 154.9 cm; Wt 48.6 kg
[2018-07-05 02:39] VITALS: TEMP 97.8
[2018-07-05 03:19] LABS: COLLECTION METHOD CLEAN CATCH
[2018-07-05 03:21] LABS: BASO % 0.4 % (0.0-2.0); EOS # 0.1 (0.0-0.7); EOS % 0.7 % (0-4.0); GRAN # 6.8 (1.4-6.5); GRAN % 61.9 % (42.2-75.2); HEMOGLOBIN 12.9 g/dl (12.5-16.0); LYMPH # 3.4 (1.2-3.4); LYMPH % 30.7 % (20.0-51.0); MEAN CELL VOLUME 88 fl (80.0-100.0); MEAN CORPUSCULAR HEMOGLOBIN 31 pg (27.0-31.0); MEAN CORPUSCULAR HGB CONC 36 g/dl (33.0-37.0); MEAN PLATELET VOLUME 9.1 fl (7.4-10.4); MONO # 0.6 (0.1-0.6); MONO % 5.9 % (1.7-9.3); PLATELET COUNT 218 K/mm3 (130-400); RED BLOOD COUNT 4.11 M/mm3 (4.10-5.30); REDCELL DISTRIBUTION WIDTH-CV 13.1 % (11.5-14.5)
[2018-07-05 03:24] LABS: HEMATOCRIT 36.2 % (37.0-47.0)
[2018-07-05 03:35] LABS: MUCOUS Present /lpf; PH 6 (5-8); SQUAMOUS EPITHELIAL 0-2 /hpf; URINE APPEARANCE Hazy; URINE BACTERIA None Seen /hpf; URINE BILIRUBIN Negative (NEGATIVE); URINE BLOOD Negative (NEGATIVE); URINE COLOR Yellow; URINE GLUCOSE Negative (NEGATIVE); URINE KETONE Negative (NEGATIVE); URINE LEUKOCYTE ESTERASE Negative (NEGATIVE); URINE NITRATE Negative (NEGATIVE); URINE PROTEIN(semi-quant) 2+ (NEGATIVE); URINE RBC 0-2 /hpf; URINE UROBILINOGEN Negative (NEGATIVE)
[2018-07-05 03:43] LABS: ALANINE AMINOTRANSFERASE 14 U/L (9-52); ALBUMIN 4.2 gm/dL (3.5-5.0); ALCOHOL(ethanol),MEDICAL 167 mg/dL; ALKALINE PHOSPHATASE 97 U/L (50-136); ANION GAP 10 mmol/L (7-16); AST,SGOT 25 U/L (15-37); BILIRUBIN,TOTAL 0.1 mg/dL (0.0-1.0); BLOOD UREA NITROGEN 11 mg/dL (7-17); CARBON DIOXIDE 27 mmol/L (22-30); CHLORIDE 106 mmol/L (98-107); CREATININE, serum 0.68 (0.52-1.25); GLUCOSE 102 mg/dL (74-106); POTASSIUM 3.3 mmol/L (3.4-5.0); SODIUM 142 mmol/L (137-145)
[2018-07-05 03:44] LABS: ACETAMINOPHEN < 10 ug/mL (10-30); SALICYLATE < 1.0 mg/dL
[2018-07-05 03:46] LABS: TRICYCLIC ANTIDEPRESS URINE NEGATIVE
[2018-07-05 09:30] VITALS: BP 130/86; PULSE 88
== END 2018-07-05 09:31 | disposition home or self-care (01) ==
LOC: COL.ER 02:29
PROVIDERS: Emergency Medicine
DX: R45.851 Suicidal ideations (principal); F10.129 Alcohol abuse with intoxication, unspecified; J45.909 Unspecified asthma, uncomplicated; F17.210 Nicotine dependence, cigarettes, uncomplicated; Z90.49 Acquired absence of other specified parts of digestive tract; Z91.041 Radiographic dye allergy status; Z90.710 Acquired absence of both cervix and uterus

== ENCOUNTER 2018-08-10 15:06 | Emergency (ER) | payer SELFPAY ==
[~2018-08-10] VITALS: Ht 154.9 cm; Wt 59.1 kg
[2018-08-10 15:07] VITALS: TEMP 97.3
[2018-08-10 16:13] LABS: BASO % 0.4 % (0.0-2.0); EOS # 0.1 (0.0-0.7); EOS % 1.6 % (0-4.0); GRAN % 42.7 % (42.2-75.2); HEMOGLOBIN 12.8 g/dl (12.5-16.0); LYMPH # 3.4 (1.2-3.4); LYMPH % 48.9 % (20.0-51.0); MEAN CELL VOLUME 89 fl (80.0-100.0); MEAN CORPUSCULAR HEMOGLOBIN 32 pg (27.0-31.0); MEAN CORPUSCULAR HGB CONC 36 g/dl (33.0-37.0); MEAN PLATELET VOLUME 9.4 fl (7.4-10.4); MONO # 0.4 (0.1-0.6); MONO % 6.3 % (1.7-9.3); PLATELET COUNT 195 K/mm3 (130-400); RED BLOOD COUNT 4.02 M/mm3 (4.10-5.30); REDCELL DISTRIBUTION WIDTH-CV 13.9 % (11.5-14.5)
[2018-08-10 16:15] LABS: HEMATOCRIT 35.9 % (37.0-47.0)
[2018-08-10 16:20] LABS: ALBUMIN 3.8 gm/dL (3.5-5.0); BILIRUBIN,TOTAL 0.4 mg/dL (0.0-1.0); CALCIUM 8.3 mg/dL (8.4-10.2); CREATININE, serum 0.62 (0.52-1.25); POTASSIUM 3.2 mmol/L (3.4-5.0); TOTAL PROTEIN 6.5 gm/dL (6.4-8.2)
[2018-08-10 18:55] VITALS: BP 122/83; PULSE 80
== END 2018-08-10 18:55 | disposition home or self-care (01) ==
LOC: COL.ER 15:06
PROVIDERS: Emergency Medicine
DX: R19.7 Diarrhea, unspecified (principal); F17.210 Nicotine dependence, cigarettes, uncomplicated; Z90.49 Acquired absence of other specified parts of digestive tract; Z90.710 Acquired absence of both cervix and uterus
CPT/HCPCS: J7120

== ENCOUNTER 2018-12-21 22:43 | Emergency (ER) | payer SELFPAY ==
[~2018-12-21] VITALS: Ht 154.9 cm; Wt 59.1 kg
[2018-12-21 22:59] VITALS: BP 121/65; TEMP 97.6
[2018-12-22 00:56] VITALS: PULSE 88
== END 2018-12-22 00:55 | disposition home or self-care (01) ==
LOC: COL.ER 22:43
DX: M79.652 Pain in left thigh (principal); F17.210 Nicotine dependence, cigarettes, uncomplicated

== ENCOUNTER 2019-01-01 21:22 | Emergency (ER) | payer SELFPAY ==
[~2019-01-01] VITALS: Ht 154.9 cm; Wt 54.5 kg
[2019-01-01 21:34] VITALS: BP 107/73; TEMP 97.9
[2019-01-01 22:15] VITALS: PULSE 80
== END 2019-01-01 22:12 | disposition home or self-care (01) ==
LOC: COL.ER 21:22
DX: S60.221A Contusion of right hand, initial encounter (principal); F32.9 Major depressive disorder, single episode, unspecified; F17.210 Nicotine dependence, cigarettes, uncomplicated; W22.8XXA Striking against or struck by other objects, initial encounter; Y92.009 Unspecified place in unspecified non-institutional (private) residence as the place of occurrence of the external cause

== ENCOUNTER 2019-04-07 20:36 | Emergency (ER) | payer SELFPAY ==
[~2019-04-07] VITALS: Ht 154.9 cm; Wt 54.5 kg
[2019-04-07 20:37] VITALS: BP 122/75; TEMP 98
[2019-04-07 21:43] VITALS: PULSE 84
[2019-04-07] MEDS ORDERED: ATARAX 25MG25 MG/TAB PO (21:43)
== END 2019-04-07 21:47 | disposition home or self-care (01) ==
LOC: COL.ER 20:36
DX: F41.9 Anxiety disorder, unspecified (principal); J45.909 Unspecified asthma, uncomplicated; Z90.89 Acquired absence of other organs; Z90.710 Acquired absence of both cervix and uterus

== ENCOUNTER 2019-08-13 19:24 | Emergency (ER) | payer SELFPAY ==
[~2019-08-13] VITALS: Ht 154.9 cm; Wt 45.5 kg
[~2019-08-13 19:24] MED LIST changes: +ATARAX 25MG25 MG/TAB PO
[2019-08-13 19:25] VITALS: BP 122/86; TEMP 98.1
[2019-08-13 20:35] VITALS: PULSE 90
== END 2019-08-13 20:36 | disposition home or self-care (01) ==
LOC: COL.ER 19:24
DX: S80.02XA Contusion of left knee, initial encounter (principal); F41.9 Anxiety disorder, unspecified; F17.210 Nicotine dependence, cigarettes, uncomplicated; Z91.041 Radiographic dye allergy status; W01.0XXA Fall on same level from slipping, tripping and stumbling without subsequent striking against object, initial encounter; Y92.009 Unspecified place in unspecified non-institutional (private) residence as the place of occurrence of the external cause
CPT/HCPCS: L1846

== ENCOUNTER 2019-09-13 11:00 | Emergency (ER) | payer MEDICAID ==
[~2019-09-13] VITALS: Ht 154.9 cm; Wt 52.3 kg
[2019-09-13 11:06] VITALS: TEMP 97.7
[2019-09-13 11:37] LABS: COLLECTION METHOD CLEAN CATCH
[2019-09-13 11:42] LABS: BASO % 0.6 % (0.0-2.0); EOS # 0.1 (0.0-0.7); EOS % 1.7 % (0-4.0); GRAN # 4.4 (1.4-6.5); GRAN % 61.9 % (42.2-75.2); HEMATOCRIT 37.5 % (37.0-47.0); HEMOGLOBIN 13.4 g/dl (12.5-16.0); LYMPH # 2.1 (1.2-3.4); LYMPH % 29.9 % (20.0-51.0); MEAN CELL VOLUME 99 fl (80.0-100.0); MEAN CORPUSCULAR HEMOGLOBIN 35 pg (27.0-31.0); MEAN CORPUSCULAR HGB CONC 36 g/dl (33.0-37.0); MEAN PLATELET VOLUME 9.3 fl (7.4-10.4); MONO # 0.4 (0.1-0.6); MONO % 5.6 % (1.7-9.3); PLATELET COUNT 214 K/mm3 (130-400)
[2019-09-13 11:45] LABS: PH 6 (5-8); SQUAMOUS EPITHELIAL 0-2 /hpf; URINE APPEARANCE Clear; URINE BACTERIA None Seen /hpf; URINE BILIRUBIN Negative (NEGATIVE); URINE BLOOD 1+ (NEGATIVE); URINE COLOR Colorless; URINE GLUCOSE Negative (NEGATIVE); URINE KETONE Negative (NEGATIVE); URINE LEUKOCYTE ESTERASE Negative (NEGATIVE); URINE NITRATE Negative (NEGATIVE); URINE PROTEIN(semi-quant) Negative (NEGATIVE); URINE RBC None Seen /hpf; URINE UROBILINOGEN Negative (NEGATIVE)
[2019-09-13 11:51] LABS: ALBUMIN 4.9 gm/dL (3.5-5.0); BILIRUBIN,TOTAL 0.4 mg/dL (0.0-1.0); CALCIUM 9.2 mg/dL (8.4-10.2); CREATININE, serum 0.51 (0.52-1.25); POTASSIUM 4.1 mmol/L (3.4-5.0); TOTAL PROTEIN 8.3 gm/dL (6.4-8.2)
[2019-09-13] MEDS ORDERED: CIPRO 500MG TA500 MG PO (13:15)
[2019-09-13] MEDS ORDERED: PRIL40 PO (13:22)
[2019-09-13 13:30] VITALS: BP 124/61; PULSE 72
== END 2019-09-13 13:30 | disposition home or self-care (01) ==
LOC: COL.ER 11:00
PROVIDERS: Nurse Practitioner Primary Care
DX: K29.00 Acute gastritis without bleeding (principal); K58.0 Irritable bowel syndrome with diarrhea; R31.9 Hematuria, unspecified; R94.5 Abnormal results of liver function studies; F41.9 Anxiety disorder, unspecified; F17.210 Nicotine dependence, cigarettes, uncomplicated; Z87.19 Personal history of other diseases of the digestive system; Z87.448 Personal history of other diseases of urinary system; Z90.49 Acquired absence of other specified parts of digestive tract; Z90.710 Acquired absence of both cervix and uterus; Z98.51 Tubal ligation status
CPT/HCPCS: J1885; J7030

== ENCOUNTER 2020-02-27 18:08 | Inpatient (IN) | payer MEDICAID ==
[~2020-02-27] VITALS: Ht 154.9 cm; Wt 46.4 kg
[~2020-02-27 18:08] MED LIST changes: +CIPRO 500MG TA500 MG PO; +PRIL40 PO
[2020-02-27 18:52] LABS: BASO % 0.4 % (0.0-2.0); EOS % 0.1 % (0-4.0); GRAN # 5.2 (1.4-6.5); GRAN % 71.6 % (42.2-75.2); HEMOGLOBIN 14.1 g/dl (12.5-16.0); LYMPH # 1.5 (1.2-3.4); LYMPH % 21.1 % (20.0-51.0); MEAN CELL VOLUME 101 fl (80.0-100.0); MEAN CORPUSCULAR HEMOGLOBIN 35 pg (27.0-31.0); MEAN CORPUSCULAR HGB CONC 34 g/dl (33.0-37.0); MEAN PLATELET VOLUME 9.3 fl (7.4-10.4); MONO # 0.5 (0.1-0.6); MONO % 6.7 % (1.7-9.3); PLATELET COUNT 165 K/mm3 (130-400); RED BLOOD COUNT 4.06 M/mm3 (4.10-5.30); REDCELL DISTRIBUTION WIDTH-CV 11.9 % (11.5-14.5)
[2020-02-27 19:04] LABS: ALANINE AMINOTRANSFERASE 66 U/L (4-34); ALKALINE PHOSPHATASE 115 U/L (50-136); AMYLASE 114 U/L (30-110); ANION GAP 30 mmol/L (7-16); AST,SGOT 88 U/L (15-37); BILIRUBIN,TOTAL 1.3 mg/dL (0.0-1.0); BLOOD UREA NITROGEN 13 mg/dL (7-17); CALCIUM 10.4 mg/dL (8.4-10.2); CHLORIDE 98 mmol/L (98-107); CREATININE, serum 0.93 (0.52-1.25); GLUCOSE 97 mg/dL (74-106); LIPASE 122 U/L (23-300); POTASSIUM 4.2 mmol/L (3.4-5.0); SODIUM 136 mmol/L (137-145)
[2020-02-27 19:33] LABS: ALCOHOL(ethanol),MEDICAL < 10 mg/dL; CARBON DIOXIDE 7 mmol/L (22-30)
[2020-02-27 19:52] LABS: ACETONE,SERUM MODERATE
[2020-02-27 20:07] LABS: SALICYLATE < 1.0 mg/dL
[2020-02-27 20:14] LABS: PROTHROMBIN TIME 11.3 SECONDS (9.7-12.8)
[2020-02-27 20:15] LABS: ARTERIAL BLD GAS O2 SATURATION 98.3 % (92-100); ARTERIAL BLD GAS TCO2 CT 10.2; ARTERIAL BLOOD GAS BASE EXCESS -13.9 (-2-2); ARTERIAL BLOOD GAS HCO3 9.7 meq/L (22-26); ARTERIAL BLOOD GAS PCO2 18.6 mmHg (35-45); ARTERIAL BLOOD GAS PO2 110.7 mmHg (80-100); ARTERIAL BLOOD GAS pH 7.33 (7.35-7.45)
[2020-02-27] MEDS ORDERED: ONE-A-DAY ESSE1 EACH PO (22:05)
[2020-02-28] VITALS (9 sets, daily range): BP systolic 102–124; BP diastolic 68–88; PULSE 80–99; TEMP 97.9–98.5
--- NOTE | 2020-02-28 06:45 | NUR ---
Pt arrived to medical unit room 307 from ED at 0600. Admission assessments and med rec completed, pt oriented to room. Resting in bed at this time. A&Ox4, heart RRR, lungs CTA. Reports mild abdominal pain described as sharp and stabbing. Intermittent N/V, none at this time. Call light in reach. Will continue to monitor.
--- NOTE | 2020-02-28 10:09 | NUR ---
Assessment complete. Patient sitting in bed, calm and comfortable at this time. States that her stomach does hurt a little but otherwise no complaints. No obvious signs of detox at this time. Pt understands to call to get up just to ensure her safety. Will continue to monitor. Call light is in reach.
[2020-02-28 12:14] LABS: BASO % 0.4 % (0.0-2.0); EOS # 0.1 (0.0-0.7); EOS % 1.2 % (0-4.0); GRAN # 3.1 (1.4-6.5); GRAN % 60.4 % (42.2-75.2); HEMATOCRIT 28.2 % (37.0-47.0); HEMOGLOBIN 10.1 g/dl (12.5-16.0); LYMPH # 1.7 (1.2-3.4); LYMPH % 32.7 % (20.0-51.0); MEAN CELL VOLUME 99 fl (80.0-100.0); MEAN CORPUSCULAR HEMOGLOBIN 36 pg (27.0-31.0); MEAN CORPUSCULAR HGB CONC 36 g/dl (33.0-37.0); MEAN PLATELET VOLUME 9.3 fl (7.4-10.4); MONO # 0.3 (0.1-0.6); MONO % 5.1 % (1.7-9.3); PLATELET COUNT 97 K/mm3 (130-400); RED BLOOD COUNT 2.84 M/mm3 (4.10-5.30); REDCELL DISTRIBUTION WIDTH-CV 11.8 % (11.5-14.5)
[2020-02-28 12:25] LABS: ALBUMIN 3.6 gm/dL (3.5-5.0); BILIRUBIN,TOTAL 0.8 mg/dL (0.0-1.0); CREATININE, serum 0.45 (0.52-1.25); TOTAL PROTEIN 5.9 gm/dL (6.4-8.2)
[2020-02-28 12:29] LABS: POTASSIUM 2.9 mmol/L (3.4-5.0)
--- NOTE | 2020-02-28 16:30 | NUR ---
Housing Liaison contacted patient by phone to complete intake as patient is COVID positive. Patient lives in [place] with her fiance, Alejandro (ph#[phone]). Patient was seeing Dr. Goff but he is no longer practicing in [place]. Patient is open to having an appointment set up with another physician in that office upon discharge. Patient obtains her medications from [facility] with no difficulties. Patient does not use any DME and is independent with [facility]LS. Patient does not have Advance Directives and her mother, Xiomara (ph#[phone]) is legal next of kin. SW addressed patient's alcohol use. Patient states she has had both inpatient and outpatient treatment in the past, including AA. Patient states she normally has not been drinking but had an entire bottle of bourbon a couple days ago. Patient is aware of available resources and declines when SW offers to schedule appointment or initiate services. Patient plans to return home upon discharge.
--- NOTE | 2020-02-28 17:23 | NUR ---
Patient has had a good day. She shows no signs or symptoms of detox at this time. She has had no complaints of pain or discomfort. Vitals have been stable, only scoring a 1 occationally when her pulse is elevated. No other needs or concerns at this time. Call light is in reach.
[2020-02-28 17:42] LABS: COLLECTION METHOD CLEAN CATCH
[2020-02-28 18:11] LABS: PH 6 (5-8); URINE APPEARANCE Clear; URINE BACTERIA Rare /hpf; URINE BILIRUBIN Negative (NEGATIVE); URINE BLOOD Negative (NEGATIVE); URINE COLOR Yellow; URINE GLUCOSE Negative (NEGATIVE); URINE KETONE Trace (NEGATIVE); URINE LEUKOCYTE ESTERASE Negative (NEGATIVE); URINE NITRATE Negative (NEGATIVE); URINE PROTEIN(semi-quant) Negative (NEGATIVE); URINE RBC 0-2 /hpf; URINE UROBILINOGEN Negative (NEGATIVE)
[2020-02-28 18:20] LABS: TRICYCLIC ANTIDEPRESS URINE NEGATIVE
--- NOTE | 2020-02-28 20:00 | NUR ---
Assessment complete. Patient is alert and oriented with no anxiety; She states her pain is at a 5/10 which is and improvement and tolerable for her. No tremors are noted. Patient is afebrile and HR is 88 bpm. IV fluids infusing into left wrist IV. PO potassium replacement provided and recheck ordered for 23:15.
[2020-02-28 23:40] LABS: HEMOGLOBIN 10.4 g/dl (12.5-16.0)
[2020-02-28 23:42] LABS: HEMATOCRIT 28.2 % (37.0-47.0)
[2020-02-29] VITALS (7 sets, daily range): BP systolic 108–124; BP diastolic 72–86; PULSE 73–91; TEMP 97.9–98.4
--- NOTE | 2020-02-29 04:29 | NUR ---
Patient has had an uneventful night. Her highest ETOH detox score was a 2, only for insomnia. Patient has been awake for a lot of the night, stating this is because she slept all day. She did get some sleep after receiving 5 mg Roxycodone for LLQ pain. She has remained afebrile and is still tolerating RA with no evidence of SOA. She has a steady gait walking to and from the restroom. No new concerns at this time. Call light in reach.
[2020-02-29 06:29] LABS: BASO % 0.3 % (0.0-2.0); EOS % 0.8 % (0-4.0); GRAN # 1.6 (1.4-6.5); GRAN % 44.5 % (42.2-75.2); LYMPH # 1.7 (1.2-3.4); MEAN CELL VOLUME 98 fl (80.0-100.0); MEAN CORPUSCULAR HGB CONC 36 g/dl (33.0-37.0); MEAN PLATELET VOLUME 9.6 fl (7.4-10.4); MONO # 0.2 (0.1-0.6); MONO % 5.1 % (1.7-9.3); PLATELET COUNT 95 K/mm3 (130-400); RED BLOOD COUNT 2.64 M/mm3 (4.10-5.30); REDCELL DISTRIBUTION WIDTH-CV 11.6 % (11.5-14.5)
[2020-02-29 06:41] LABS: CREATININE, serum 0.4 (0.52-1.25)
[2020-02-29 06:45] LABS: HEMATOCRIT 25.8 % (37.0-47.0); HEMOGLOBIN 9.4 g/dl (12.5-16.0); MEAN CORPUSCULAR HEMOGLOBIN 36 pg (27.0-31.0)
--- NOTE | 2020-02-29 10:50 | NUR ---
Assessment completed, alert/oriented, vitals signs stable, denies feeling anxious or shaky, no tremors noted, denies N/V and is tolerating PO intake, scoring 0/10 on CIWA at this time, patient does report some 6/10 LLQ pain and requsted pain meds, I gave 1 table of 5mg Oxy, NO resp.difficulty noted, patient on room air and lungs are CTA, heart RRR/ distal pulses are palapble, potassium 3.0 this morning and replacing per protocol, she denies other needs at this time, will continue to monitor
[2020-02-29] MEDS ORDERED: PROTONIX 40MG T40 MG PO (13:21)
[2020-02-29] MEDS ORDERED: THIAMINE 1100 MG/TAB PO (13:21)
[2020-02-29] MEDS ORDERED: FOLIC ACID 11 MG/TA1 PO (13:21)
[2020-02-29] MEDS ORDERED: K-TAB20 PO (13:22)
--- NOTE | 2020-02-29 16:39 | NUR ---
Discharge instructions reviewed with the patient, instructed to stay home and self quarentine for total of 10 days, instructed to have follow up labwork and appointmenty with PCP in 1 weeks time, IV and tele removed, patient ambulatory and i escorted her out the door
== END 2020-02-29 16:44 | disposition home or self-care (01) | DRG 178 ==
LOC: COL.ER 18:08 → MEDICAL 23:26
PROVIDERS: Physician Assistant; Student in an Organized Health Care Education/Training Program; ADMIT Internal Medicine
DX: U07.1 COVID-19 (principal); E87.2 Acidosis; G62.1 Alcoholic polyneuropathy; K52.9 Noninfective gastroenteritis and colitis, unspecified; F10.10 Alcohol abuse, uncomplicated; Y90.0 Blood alcohol level of less than 20 mg/100 ml; F17.210 Nicotine dependence, cigarettes, uncomplicated; Z90.710 Acquired absence of both cervix and uterus; E87.6 Hypokalemia
CPT/HCPCS: 99222-AI; 99232-AI; 99233-AI; 99239; C9113; J1650; J2060; J2405; J3411; J7030

== ENCOUNTER 2020-05-26 14:15 | Emergency (ER) | payer MEDICAID ==
[~2020-05-26] VITALS: Ht 154.9 cm; Wt 41.8 kg
[~2020-05-26 14:15] MED LIST changes: +FOLIC ACID 11 MG/TA1 PO; +K-TAB20 PO; +ONE-A-DAY ESSE1 EACH PO; +PROTONIX 40MG T40 MG PO; +THIAMINE 1100 MG/TAB PO
[2020-05-26 14:31] VITALS: TEMP 97.8
[2020-05-26] MEDS ORDERED: NAPROSYN500 MG PO (16:33)
[2020-05-26 16:50] VITALS: BP 142/88; PULSE 91
[2020-05-27] MEDS ORDERED: NAPROSYN500 MG PO (16:48)
== END 2020-05-26 16:51 | disposition home or self-care (01) ==
LOC: COL.ER 14:15
DX: S29.011A Strain of muscle and tendon of front wall of thorax, initial encounter (principal); K21.9 Gastro-esophageal reflux disease without esophagitis; F17.210 Nicotine dependence, cigarettes, uncomplicated; Y04.8XXA Assault by other bodily force, initial encounter
CPT/HCPCS: J1885

== ENCOUNTER 2021-05-25 13:54 | Emergency (ER) | payer OTHER, MEDICAID ==
[~2021-05-25] VITALS: Ht 154.9 cm; Wt 57.7 kg
[2021-05-25 14:10] VITALS: TEMP 98.7
[2021-05-25 14:31] LABS: BASO % 0.4 % (0.0-2.0); EOS # 0.2 K/mm3 (0.0-0.7); GRAN # 2.7 K/mm3 (1.4-6.5); GRAN % 61.1 % (42.2-75.2); HEMOGLOBIN 11.5 g/dl (12.5-16.0); LYMPH # 1.2 K/mm3 (1.2-3.4); LYMPH % 26.3 % (20.0-51.0); MEAN CELL VOLUME 92 fl (80.0-100.0); MEAN CORPUSCULAR HEMOGLOBIN 32 pg (27-31); MEAN CORPUSCULAR HGB CONC 35 g/dl (33.0-37.0); MEAN PLATELET VOLUME 9.4 fl (7.4-10.4); MONO # 0.4 K/mm3 (0.1-0.6); PLATELET COUNT 215 K/mm3 (130-400); RED BLOOD COUNT 3.61 M/mm3 (4.10-5.30); REDCELL DISTRIBUTION WIDTH-CV 11.2 % (11.5-14.5)
[2021-05-25 14:32] LABS: HEMATOCRIT 33.1 % (37.0-47.0)
[2021-05-25 14:47] LABS: COLLECTION METHOD CLEAN CATCH
[2021-05-25 14:59] LABS: MUCOUS Present (NOT PRESENT); PH 5 (5-8); URINE APPEARANCE Hazy (CLEAR/HAZY); URINE BACTERIA None Seen /hpf (NONE SEEN); URINE BILIRUBIN Positive (NEGATIVE); URINE BLOOD Negative (NEGATIVE); URINE COLOR Amber (YELLOW); URINE GLUCOSE Negative (NEGATIVE); URINE KETONE 1+ (NEGATIVE); URINE LEUKOCYTE ESTERASE Negative (NEGATIVE); URINE NITRATE Negative (NEGATIVE); URINE PROTEIN(semi-quant) 1+ (NEGATIVE); URINE RBC 0-2 /hpf (0-2); URINE UROBILINOGEN >=4.0 (NEGATIVE)
[2021-05-25 15:04] LABS: ALBUMIN 4.1 gm/dL (3.5-5.0); BILIRUBIN,TOTAL 0.4 mg/dL (0.2-1.2); C-REACTIVE PROTEIN 1.2 mg/dL (0.00-0.50); CREATININE, serum 0.93 mg/dL (0.57-1.11); POTASSIUM 3.9 mmol/L (3.5-4.5); TOTAL PROTEIN 6.4 gm/dL (6.2-8.1)
[2021-05-25] MEDS ORDERED: ZOFRAN 4MG T4 MG/TAB PO (15:58)
[2021-05-25 16:09] VITALS: BP 111/73; PULSE 89
== END 2021-05-25 16:09 | disposition home or self-care (01) ==
LOC: COL.ER 13:54
PROVIDERS: Nurse Practitioner Primary Care
DX: A08.11 Acute gastroenteropathy due to Norwalk agent (principal); Z90.49 Acquired absence of other specified parts of digestive tract
CPT/HCPCS: J1885; J2405; J7030

== ENCOUNTER 2021-12-17 22:05 | Emergency (ER) | payer MEDICAID ==
[~2021-12-17] VITALS: Ht 154.9 cm; Wt 59.1 kg
[2021-12-17 22:11] VITALS: TEMP 98.1
[2021-12-17 23:06] VITALS: BP 124/70; PULSE 76
== END 2021-12-17 23:06 | disposition home or self-care (01) ==
LOC: COL.ER 22:05
DX: S61.512A Laceration without foreign body of left wrist, initial encounter (principal); S51.812A Laceration without foreign body of left forearm, initial encounter; Z28.310 Unvaccinated for COVID-19; W18.02XA Striking against glass with subsequent fall, initial encounter

== ENCOUNTER 2022-06-16 12:36 | Emergency (ER) | payer MEDICAID ==
[~2022-06-16] VITALS: Ht 154.9 cm; Wt 59.1 kg
[2022-06-16 13:19] VITALS: TEMP 98.4
[2022-06-16] MEDS ORDERED: ROBAXIN 50500 MG/TAB PO (16:07)
[2022-06-16] MEDS ORDERED: INDOCIN 25MG CA25 MG PO (16:07)
[2022-06-16 16:43] VITALS: BP 100/67; PULSE 83
== END 2022-06-16 16:43 | disposition home or self-care (01) ==
LOC: COL.ER 12:36
DX: M25.511 Pain in right shoulder (principal); M25.521 Pain in right elbow; Z96.611 Presence of right artificial shoulder joint

== ENCOUNTER 2022-06-26 11:31 | Emergency (ER) | payer MEDICAID ==
[~2022-06-26] VITALS: Ht 160 cm; Wt 59.1 kg
[~2022-06-26 11:31] MED LIST changes: +INDOCIN 25MG CA25 MG PO; +ROBAXIN 50500 MG/TAB PO
[2022-06-26 11:38] VITALS: TEMP 98.2
[2022-06-26] MEDS ORDERED: MEDROL 4MG DOSPA4 MG PO (12:46)
[2022-06-26 12:48] VITALS: BP 113/77; PULSE 76
== END 2022-06-26 12:48 | disposition home or self-care (01) ==
LOC: COL.ER 11:31
DX: M25.511 Pain in right shoulder (principal); F17.200 Nicotine dependence, unspecified, uncomplicated; Z98.890 Other specified postprocedural states; X50.0XXA Overexertion from strenuous movement or load, initial encounter
CPT/HCPCS: J1885